=== PATIENT | male | born 1965 | race Caucasian/White ===

== ENCOUNTER 2019-02-13 14:37 | Emergency (ER) | payer OTHER ==
--- NOTE | 2019-02-13 14:55 | PDOC ---
Rapid Medical Evaluation Chief Complaint: Back Pain Time Seen by Provider: 02/13/19 14:53 Medical Evaluation: Allergies Allergy/AdvReac Type Severity Reaction Status Date / Time No Known Allergies Allergy Verified 09/17/11 02:28 02/13/19 14:53 I have performed a brief in-person evaluation of this patient. The patient presents with a chief complaint of: low back pain x 1 week with left leg radiation, before would resolve , no fevers/ no urine px Pertinent physical exam findings: amb / walks slow I have ordered the following: nothing The patient will proceed to the ED for further evaluation. Discharge Disposition - Diagnosis Back pain Qualifiers: Back pain location: low back pain - Referrals - Patient Instructions - Post Discharge Activity
[2019-02-13 14:57] VITALS: BP 132/89; PULSE 97; TEMP 98.7; BMI 35.4
[2019-02-13] MEDS ORDERED: KETOROLAC TROMETHAMINE 60 MG/2 ML VIAL IM ONE (15:34)
[2019-02-13] MEDS ORDERED: KETOROLAC TROMETHAMINE 60 MG/2 ML VIAL ONE (15:36)
--- NOTE | 2019-02-13 15:42 | PDOC ---
History of Present Illness - General Chief Complaint: Back Pain Stated Complaint: LWR BACK PAIN Time Seen by Provider: 02/13/19 14:53 - History of Present Illness Initial Comments: 02/13/19 15:40 53 y/o M PMH of HTN on ACEI presents for evaluation of l/s pain with L LE radiculopathy x1 week without loss of b/b or saddle parasthesia Past History - Past Medical History Allergies/Adverse Reactions: Allergies Allergy/AdvReac Type Severity Reaction Status Date / Time No Known Allergies Allergy Verified 09/17/11 02:28 Home Medications: Ambulatory Orders Amox Tr/Potassium Clavulanate [Augmentin 875-125 Tablet] 1 each PO BID #20 tablet 09/17/11 Cyclobenzaprine HCl [Flexeril 10 mg] 10 mg PO HS PRN #10 tablet 02/13/19 Methylprednisolone [Medrol Dose Rusty] 4 mg PO ASDIR #21 tablet 02/13/19 COPD: No - Immunization History Immunization Up to Date: Yes - Suicide/Smoking/Psychosocial Hx Smoking Status: No Smoking History: Never smoked Number of Cigarettes Smoked Daily: 0 Information on smoking cessation initiated: No Hx Alcohol Use: No Drug/Substance Use Hx: No Review of Systems - Review of Systems Constitutional: No: Fever : No: Incontinence Musculoskeletal: Yes: Back Pain *Physical Exam - Vital Signs Last Vital Signs Temp Pulse Resp BP Pulse Ox 98.7 F 97 H 16 132/89 95 02/13/19 14:54 02/13/19 14:54 02/13/19 14:54 02/13/19 14:54 02/13/19 14:54 - Physical Exam Comments: 02/13/19 15:39 L/S skin color and temperature are normal range of motion is slightly limited. There is no midline tenderness. Moderate right and left paralumbar musculature spasm tender on the right and left. 5 out of 5 strength bilateral lower extremities without gross sensorimotor deficits positive straight leg raise test on the left negative on the right neurovascularly intact. Thighs and calves are soft and nontender. ED Treatment Course - Medications Given in the ED: ED Medications Discontinued Medications Generic Name Dose Route Start Last Admin Trade Name Freq PRN Reason Stop Dose Admin Ketorolac Tromethamine 60 mg 02/13/19 15:34 02/13/19 15:36 Toradol Injection - IM 02/13/19 15:35 60 mg ONCE ONE Administration Medical Decision Making - Medical Decision Making 02/13/19 15:39 Medrol Dosepak follow-up with neurosurgery discussed the use of the medrol dose pack *DC/Admit/Observation/Transfer Diagnosis at time of Disposition: Lumbar radiculopathy Back pain Qualifiers: Back pain location: low back pain - Discharge Dispostion Disposition: HOME Condition at time of disposition: Stable Decision to Admit order: No - Prescriptions Prescriptions: Cyclobenzaprine HCl [Flexeril 10 mg] 10 mg PO HS PRN #10 tablet PRN Reason: Muscle Spasms Methylprednisolone [Medrol Dose Rusty] 4 mg PO ASDIR #21 tablet - Referrals Referrals: Medardo Castle MD, [facility] [Staff Physician] - - Patient Instructions Printed Discharge Instructions: Lumbar Radiculopathy, DI for Lumbar Radiculopathy Additional Instructions: You may start the steroid pack tomorrow. Please take the muscle relaxer as directed. Return to the emergency room for worsening symptoms. Follow-up with neurosurgery in 1-2 days for further evaluation and treatment options without fail. And return to the emergency room should symptoms worsen. - Post Discharge Activity
== END 2019-02-13 16:09 | disposition home or self-care (01) ==
LOC: JERFT 14:37
PROC: 3E0233Z Introduction of Anti-inflammatory into Muscle, Percutaneous Approach (ICD-10-PCS; principal; 2019-02-13)
DX: M54.16 Radiculopathy, lumbar region (principal); I10 Essential (primary) hypertension
CPT/HCPCS: 99281-25

== ENCOUNTER 2019-02-14 15:41 | Emergency (ER) | payer OTHER | END 2019-02-14 17:12 | disposition home or self-care (01) | LOC: JERFT 15:41 ==